=== PATIENT | male | born 1995 | race Asian ===

== ENCOUNTER 2020-03-27 09:45 | Emergency (ER) | payer BC ==
[~2020-03-27] VITALS: Ht 177.8 cm; Wt 72.6 kg
[2020-03-27 09:52] VITALS: TEMP 99
[2020-03-27 10:37] LABS: PLATELET COUNT 227 K/uL (142-355)
[2020-03-27 10:42] LABS: POTASSIUM 3.7 mmol/L (3.6-5.2)
[2020-03-27 11:25] VITALS: BP 179/99
== END 2020-03-27 11:25 | disposition home or self-care (01) ==
LOC: ED 09:45
PROVIDERS: Hospitalist
DX: J45.909 Unspecified asthma, uncomplicated (principal); I16.0 Hypertensive urgency
CPT/HCPCS: 80048; 85027; 87502; 87651; 93005; 96372; 99283; J0696; J1100

== ENCOUNTER 2023-02-10 10:05 | Outpatient (CLI) | payer BC | END 2023-02-10 19:57 | disposition home or self-care (01) | LOC: US 10:05 | PROVIDERS: ATTEND Internal Medicine | DX: I10 Essential (primary) hypertension (principal); R80.8 Other proteinuria ==